=== PATIENT | female | born 1960 | race Caucasian/White ===

== ENCOUNTER 2023-06-12 09:49 | Emergency (ER) | payer SELFPAY ==
[~2023-06-12] VITALS: Ht 162.6 cm; Wt 93.0 kg
[2023-06-12] MEDS ORDERED: LEVO150T PO (10:13)
[2023-06-12] MEDS ORDERED: BISO1TAB4 PO (10:13)
[2023-06-12] MEDS ORDERED: ROSU5TAB PO (10:13)
[2023-06-12] MEDS ORDERED: LIDOCAINE 2%-EPI 1:100,000 20 ML VIAL ONE (10:33)
[2023-06-12] MEDS: LIDOCAINE 2%-EPI 1:100,000 20 ML VIAL TP ONE (10:36)
[2023-06-12 12:22] VITALS: BP 133/90; O2SAT 98
[2023-06-12] MEDS ORDERED: IBUPROFEN 600 MG TABLET ONE (12:25)
[2023-06-12] MEDS: IBUPROFEN 600 MG TABLET PO ONE (12:26)
== END 2023-06-12 12:29 | disposition home or self-care (01) ==
LOC: ER 09:54
DX: S01.511A Laceration without foreign body of lip, initial encounter (principal); S60.222A Contusion of left hand, initial encounter; Z79.899 Other long term (current) drug therapy; W01.0XXA Fall on same level from slipping, tripping and stumbling without subsequent striking against object, initial encounter; Y93.89 Activity, other specified; Y92.89 Other specified places as the place of occurrence of the external cause; Y99.8 Other external cause status
CPT/HCPCS: 73130; A4606; A4663